=== PATIENT | female | born 1970 | race Caucasian/White ===

== ENCOUNTER 2016-12-10 13:52 | Inpatient (IN) | payer OTHER ==
--- NOTE | 2016-12-10 13:55 | PDOC ---
History of Present Illness - General Stated Complaint: PAIN Time Seen by Provider: 12/10/16 13:55 History Source: Patient Exam Limitations: No Limitations - History of Present Illness Initial Comments: 46 yo F no PMH presents with few days of severe low back pain with radiation into the L thigh. She states that she was getting out of bed, turned to the left to open a door, felt a sudden severe pain. She described it like a knife going through her lower back. She was unable to walk all day due to the pain. She has intermittently had the pain since then, but then the back pain improved. She is now having pain in the L thigh and weakness in the foot. She notes that she had an EMG a few days ago with Dr. Saunders which showed an L5-S1 radiculopathy. MRI showed damage to one of her discs. She is unable to stand on her toes due to weakness. She discussed with Dr. Faust, who referred her to ED for admission. She has been taking muscle relaxers, NSAIDs, tramadol without relief. She has finished a course of steroids. Past History - Past Medical History Allergies/Adverse Reactions: Allergies Allergy/AdvReac Type Severity Reaction Status Date / Time No Known Allergies Allergy Verified 12/10/16 14:01 Home Medications: Ambulatory Orders Acetaminophen [Tylenol] 650 mg PO Q4H PRN 12/10/16 Cyclobenzaprine HCl [Flexeril 10 mg] 10 mg PO BID 12/10/16 Gabapentin [Neurontin -] 100 mg PO Q8H 12/10/16 Ibuprofen [Motrin -] 600 mg PO TID 12/10/16 Ranitidine HCl [Zantac] 150 mg PO BID 12/10/16 Tramadol HCl [Ultram] 50 mg PO Q4H PRN 12/10/16 - Immunization History Immunization Up to Date: Yes - Psycho/Social/Smoking Cessation Hx Suicidal Ideation: No Smoking History: Never smoked Substance Use Type: None Review of Systems - Review of Systems Able to Perform ROS?: Yes Comments:: GENERAL/CONSTITUTIONAL: No fever or chills. HEAD, EYES, EARS, NOSE AND THROAT: No change in vision. No ear pain or discharge. No sore throat. CARDIOVASCULAR: No chest pain or shortness of breath. RESPIRATORY: No cough, wheezing, or hemoptysis. GASTROINTESTINAL: No nausea, vomiting, diarrhea or constipation. GENITOURINARY: No dysuria, frequency, or change in urination. MUSCULOSKELETAL: No joint or muscle swelling or pain. No neck or back pain. SKIN: No rash NEUROLOGIC: No headache, vertigo, loss of consciousness. +L foot drop ENDOCRINE: No increased thirst. No abnormal weight change. HEMATOLOGIC/LYMPHATIC: No anemia, easy bleeding, or history of blood clots. ALLERGIC/IMMUNOLOGIC: No hives or skin allergy. *Physical Exam - Physical Exam Comments: GENERAL: Awake, alert, and fully oriented, in no acute distress HEAD: No signs of trauma EYES: PERRLA, EOMI, sclera anicteric, conjunctiva clear ENT: Auricles normal inspection, hearing grossly normal, nares patent, oropharynx clear without exudates. Moist mucosa NECK: Normal ROM, supple, no lymphadenopathy, JVD, or masses LUNGS: Breath sounds equal, clear to auscultation bilaterally. No wheezes, and no crackles HEART: Regular rate and rhythm, normal S1 and S2, no murmurs, rubs or gallops ABDOMEN: Soft, nontender, normoactive bowel sounds. No guarding, no rebound. No masses EXTREMITIES: Normal range of motion, no edema. No clubbing or cyanosis. No cords, erythema, or tenderness NEUROLOGICAL: Cranial nerves II through XII grossly intact. Normal speech. Able to ambulate, but unable to stand on her toes on the L side. Sensation intact. SKIN: Warm, Dry, normal turgor, no rashes or lesions noted. SPINE: No midline tenderness. ED Treatment Course - LABORATORY CBC & Chemistry Diagram: 12/10/16 14:20 12/10/16 14:20 Medical Decision Making - Medical Decision Making 12/10/16 14:[address] Wright. Dr. Faust at bedside to evaluate. Patient declines pain meds at present. *DC/Admit/Observation/Transfer Diagnosis at time of Disposition: Radiculopathy, lumbar region - Discharge Dispostion Condition at time of disposition: Stable Admit: Yes
[2016-12-10 14:07] VITALS: BMI 25.0
[2016-12-10 14:23] LABS: BASOPHIL 0.8 % (0-2.0); EOSINOPHIL 1.5 % (0-4.5); MCH 28.1 pg (25.7-33.7); MCHC 33.3 g/dl (32.0-36.0); MEAN CELL VOLUME 84.3 fl (80-96); MEAN PLT VOLUME 9.2 fl (7.5-11.1); NEUTROPHILS 58.7 % (42.8-82.8); PLATELET COUNT 157 K/MM3 (134-434); RDW 17.7 % (11.6-15.6); WHITE BLOOD COUNT 8.8 K/mm3 (4.0-10.0)
[2016-12-10 14:42] LABS: ALBUMIN 3.5 g/dl (3.4-5.0); ALK PHOS 53 U/L (45-117); ANION GAP 10 (8-16); BILIRUBIN,TOTAL 0.4 mg/dL (0.2-1.0); CALCIUM 8.6 mg/dL (8.5-10.1); CO2 26 mmol/L (21-32); CREATININE 0.9 mg/dL (0.55-1.02); GLUCOSE,RANDOM 113 mg/dL (74-106); SGOT/AST 14 U/L (15-37); SGPT/ALT 24 U/L (12-78); TOT PROT 7.1 g/dl (6.4-8.2)
--- NOTE | 2016-12-10 14:49 | PN ---
Progress Note (short form) - Note Progress Note: NEUROSURGERY CONSULT DICTATED Pt examined History obtained Chart reviewed MRI from reviewed Some back pain for a few weeks Turned to L to get up this Sunday with increased L buttock pain to L posterior thigh, calf, ankle, and foot L foot numbness and able to stand up toes or forcefully lift L foot up; Did not have L foot weakness when she saw Dr Saunders on Sunday; EMG showed L L5-S1 radiculopathy reportedly at that time Unable to ambulate without severe pain Had taken motrin, tylenol, Neurontin, Ultram, Flexeril without significant lasting relief Had been on medrol this week and finished on Sunday/Sunday No B/B dysfunction PE: AF, VSS HEENT- NC/At; Neck- supple;Cor- RR; Lungs- CTA B; Abd- benign, + BS; Ext- No sign of DVT CN- intact II-XII; Motor- L EHL 3, L TA 3-4-, L inv 4-; L PF/toe flexors 4-; Sensation- decreased L S1 > L5 LT/PP/vibration; DTR- decreased B ankle reflexes ; + SLR on L at 45 degrees Labs pending CXR/EKG pending LS spine MRI 6-15: Small L4-5 central disc protrusion; L L5-S1 paracentral and downwardly extruded disc with moderate L S1 root compression and posterior displacement Acute progressive L L5 and S1 radiculopathy with moderate L foot drop Prior MRI findings would cause mostly L S1 and not L5 radiculopathy Repeat MRI to r/o L L4-5 paracentral or L L5-S1 foramenal HNP with L L5 root compression in addition to L S1 root compression Hematology input as pt had been on Motrin this past week OR for L L5-S1 hemilaminectomies and mocrodiscectomy (and possibly L L4-5 microdiscectomy pending new MRI findings) Pros and cons discussed Risks (bleeding, infection, dural tear, CSF leak, nerve injury, recurrent HNP, instability, general anesthesia, increased thromboembolic risks) and potential benefits discussed; bleeding risks slightly higher because of recent NSAIDS use
[2016-12-10 14:59] LABS: INR 1.04 (0.82-1.09); PROTHROMBIN TIME (PATIENT) 11.4 SEC (9.98-11.88)
--- NOTE | 2016-12-10 16:31 | HP ---
Admitting History and Physical - Admission Chief Complaint: pain in the left lower extremity and foot History of Present Illness: 46 yo female s/p pain in the left lower extremity which started suddenly 7 days ago , when the patient got up from bed and turned/ rotated her upper body to the left. The intensity of the pain immobilized the patient to bed. EMG performed on 12/07/16 showed radiculitis of the L5 and S1 nerves. MRI performed today showed a large extended L5- S1 disc herniation, impingement and posterior displacement of the left S1 nerve root; small central right paramedian L4- L5 disc herniation. The patient took various medications for her pain including: Tramadol, Flexeril , Medrol Pack. She completed the Medrol pAck yesterday. Her last dose of Motrin was today at 10 am. 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: Yes: Peripheral Neuropathy (L5, S1) Gastrointestinal: Yes: Constipation ...: No Musculoskeletal: Yes: Chronic low back pain (off an don) - Past Surgical History Additional Past Surgical History: right clavicle fracture - Smoking History Smoking history: Never smoked Have you smoked in the past 12 months: No - Alcohol/Substance Use Hx Alcohol Use: No - Social History Usual Living Arrangement: Yes: With Spouse ADL: Independent History of Recent Travel: No Home Medications - Allergies Allergies/Adverse Reactions: Allergies Allergy/AdvReac Type Severity Reaction Status Date / Time No Known Allergies Allergy Verified 12/10/16 14:01 - Home Medications Home Medications: Ambulatory Orders Acetaminophen [Tylenol] 650 mg PO Q4H PRN 12/10/16 Cyclobenzaprine HCl [Flexeril 10 mg] 10 mg PO BID 12/10/16 Gabapentin [Neurontin -] 100 mg PO Q8H 12/10/16 Ibuprofen [Motrin -] 600 mg PO TID 12/10/16 Ranitidine HCl [Zantac] 150 mg PO BID 12/10/16 Tramadol HCl [Ultram] 50 mg PO Q4H PRN 12/10/16 Review of Systems - Review of Systems Constitutional: reports: No Symptoms Eyes: reports: No Symptoms HENT: reports: No Symptoms Neck: reports: No Symptoms Cardiovascular: reports: No Symptoms Respiratory: reports: No Symptoms Gastrointestinal: reports: Constipation Genitourinary: reports: No Symptoms Breasts: reports: No Symptoms Reported Musculoskeletal: reports: Muscle Cramps (right paraspinal area), Other Integumentary: reports: No Symptoms Neurological: reports: Weakness, Other (weakness of the left foot and left lower extremity, paresthesias, pain the left lower extremiry starting in the buttock and radiating to the left heel) Endocrine: reports: No Symptoms Hematology/Lymphatic: reports: No Symptoms Psychiatric: reports: No Symptoms Physical Examination Vital Signs: Vital Signs Temperature 98.4 F 12/10/16 14:27 Pulse Rate 100 H 12/10/16 15:18 Respiratory Rate 16 12/10/16 15:18 Blood Pressure 116/84 12/10/16 15:18 O2 Sat by Pulse Oximetry (%) 99 12/10/16 15:46 Constitutional: Yes: Well Nourished, No Distress Eyes: Yes: Conjunctiva Clear, EOM Intact HENT: Yes: Atraumatic, Normocephalic Neck: Yes: Supple, Trachea Midline Cardiovascular: Yes: Regular Rate and Rhythm, S1, S2 Respiratory: Yes: Regular, CTA Bilaterally Gastrointestinal: Yes: Normal Bowel Sounds, Soft. No: Hepatomegaly, Splenomegaly ...Rectal Exam: Yes: Deferred Renal/: Yes: WNL Breast(s): Yes: WNL Musculoskeletal: Yes: Other (muscle spasm, left paraspinal area) Extremities: No: Calf Tenderness Edema: No Peripheral Pulses WNL: Yes Wound/Incision: Yes: Well Approximated Neurological: Yes: Alert, Oriented, Paresthesia (left foot, pain in the left lower extremity, radiating from the left buittock to the heel and toe) Psychiatric: Yes: Alert, Oriented Imaging - Results Chest X-ray: Other (ap film, no cardiomegaly, no pleural effusion, no infiltrate ) MRI: Other (large extended L5- L1 disc herniation, impingement and posterior displacement of the left S1 nerve root, small central right paramedian L4-L5 disc herniation) EKG: Other (NSR 98 b/min, jef l P and MS interval, QRS axis at 15 degrees, good R wave progresion, nonspecific ST- T changes) Assessment/Plan 1. L5- S1 disc herniation patient will have surgery in am since the patient took the last dose of Motrin today at 8:30 am the surgery will be performed tomorrow, DDAVP will be administered to prevent intraoperatory bleeding pain management with Tramadol and Tylenol NPO starting midnight d 51/2 NS at 75 cc/ her starting 9 pm 2. Pain management as above 3, DVT prophylaxis early ambulation 4 . PUD prophylaxis Protonix
--- NOTE | 2016-12-10 16:34 | CONSULT ---
Consult - text type - Consultation Consultation Note: 46 yo F no PMH presents with few days of severe low back pain with radiation into the L thigh. She states that she was getting out of bed, turned to the left to open a door, felt a sudden severe pain. She described it like a knife going through her lower back. She was unable to walk all day due to the pain. She has intermittently had the pain since then, but then the back pain improved. She is now having pain in the L thigh and weakness in the foot. She notes that she had an EMG a few days ago with Dr. Saunders which showed an L5-S1 radiculopathy. MRI showed damage to one of her discs. She is unable to stand on her toes due to weakness. She discussed with Dr. Faust, who referred her to ED for admission. She has been taking flexeril, NSAIDs, tramadol, Motrin 600mg without relief. She has finished a course of medrol dose pack. PMH clavicle fx No h/o bleeding diathesis, or thromboses Family h/o No h/o bleeding diathesis/thrombophilia PSH Allergies/Adverse Reactions: Allergies Allergy/AdvReac Type Severity Reaction Status Date / Time No Known Allergies Allergy Verified 12/10/16 14:01 Home Medications: Ambulatory Orders Acetaminophen [Tylenol] 650 mg PO Q4H PRN 12/10/16 Cyclobenzaprine HCl [Flexeril 10 mg] 10 mg PO BID 12/10/16 Gabapentin [Neurontin -] 100 mg PO Q8H 12/10/16 Ibuprofen [Motrin -] 600 mg PO BID 12/10/16 Ranitidine HCl [Zantac] 150 mg PO BID 12/10/16 Tramadol HCl [Ultram] 50 mg PO Q4H PRN 12/10/16 Active Medications Generic Name Dose Route Start Last Admin Trade Name Freq PRN Reason Stop Dose Admin Acetaminophen 500 mg 12/10/16 17:10 Tylenol - PO Q6H PRN FEVER OR PAIN Potassium Chloride/Dextrose/Sod Cl 1,000 mls @ 75 mls/hr 12/10/16 21:00 D5-1/2ns+20 Meq Kcl - IV ASDIR ADILIA Tramadol HCl 50 mg 12/10/16 17:10 Ultram - PO Q4H PRN PAIN Last Vital Signs Temp Pulse Resp BP Pulse Ox 99 F 93 H 20 124/61 99 12/10/16 16:30 12/10/16 16:30 12/10/16 16:30 12/10/16 16:30 12/10/16 15:46 - Physical Exam Comments: GENERAL: Awake, alert, and fully oriented, in no acute distress HEAD: No signs of trauma NECK: Normal ROM, supple, no lymphadenopathy, JVD, or masses LUNGS: Breath sounds equal, clear to auscultation bilaterally. No wheezes, and no crackles HEART: Regular rate and rhythm, normal S1 and S2, no murmurs, rubs or gallops ABDOMEN: Soft, nontender, normoactive bowel sounds. No guarding, no rebound. No masses EXTREMITIES: Normal range of motion, no edema. No clubbing or cyanosis. No cords, erythema, or tenderness NEUROLOGICAL: Cranial nerves II through XII grossly intact. Normal speech. Sensation intact. Strength 4/5 LLE Abnormal Lab Results 12/10/16 12/10/16 14:20 14:20 RDW 17.7 H D Random Glucose 113 H AST 14 L A/P 46 y/o female with L5-S1 disk prolapse with S1 radiculopathy Had been on NSAIDS---motrin 600mg bid Last dose was on 12/10 at 8:30am No h/o aspirin use. no other blood thinners. No personal/family h/o bleeding diathesis PT/PTT/platelets/fibrinogen are normal Platelet function appears to return to normal after 24 hrs. of last dose of motrin. NSAIDS are ideally discontinued 2-3 days prior to surgery. Patient reluctant to take platelets . To consider DDAVP --0.3 mcg/kg IVSS over 30mins. --21 micrograms over 30mins. prior to procedure , depending on timing of procedure timing of surgery per neurosurgical team Will follow
[2016-12-10] MEDS ORDERED: PANTOPRAZOLE SOD 40 MG SUSPENSION PACKET PO ONE (17:16)
[2016-12-10] MEDS ORDERED: POLYETHYLENE GLYCOL 3350 119 GM BTL PO PRN (17:18)
[2016-12-10] MEDS: traMADol HCL 50 MG TABLET PO PRN ×2 (17:29→23:54)
[2016-12-10] MEDS: ACETAMINOPHEN 500 MG TABLET (FP) PO PRN ×2 (17:29→23:56)
[2016-12-10] MEDS ORDERED: PANTOPRAZOLE 40 MG TABLET (FP) PO SCH (17:30)
--- NOTE | 2016-12-10 18:35 | CONS ---
DATE OF CONSULTATION: 12/10/2016 REQUESTING PHYSICIAN: Dr. Kaiser, Emergency Room CHIEF COMPLAINT: Acute L5-S1 radiculopathy with moderate foot drop. HISTORY OF PRESENT ILLNESS: The patient is a 46-year-old right-handed female with no significant past medical history, who has complained of intermittent chronic lower back pain which has worsened over the past few weeks. 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 She had gotten out of bed early this Sunday morning and turned to her left side to open the door, when she felt a pop in the left side lower back with severe pain. That subsided, but started experiencing pain going down to her left buttock, posterior thigh, calf, and the left foot. There is associated numbness on the lateral aspect of the left foot. She was started on a Medrol Dosepak in earlier part of the week, Sunday, and then subsequently saw Dr. Vladimir Saunders, neurologist, for a neurology consultation. EMG reportedly demonstrated a left L5-S1 radiculopathy. She was not reportedly found to have significant foot weakness at the time. She has no bowel or bladder dysfunction. She has been taking a significant amount of narcotic medications including Ultram, Flexeril, Neurontin, Tylenol, and Motrin. She has no right lower extremity symptoms. She has only very mild lower back pain at this time. She was not able to ambulate well because of the significant pain. Past medical history is noncontributory except for the above. Prior right clavicular fracture. Medication is Motrin, Tylenol, Neurontin, Ultram, Flexeril, and Medrol Dosepak. There is no known drug allergy. Family history is noncontributory. In terms of social history, she does not smoke, and only drinks alcohol socially. 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 She lives at home with her family. Review of systems is otherwise negative for other major cardiovascular, pulmonary, gastrointestinal, genitourinary, endocrinological, neurological, or psychological problem except for the above. PHYSICAL EXAMINATION: Vital Signs: Temperature is 98, blood pressure is 135/95, with pulse rate 111, O2 saturation is 99% on room air. HEENT: Normocephalic, atraumatic. Anicteric. Neck: Supple, with no lymphadenopathy, no carotid bruit. Coronary: Regular rhythm. Lungs: Clear bilaterally. Abdomen: Benign with active bowel sounds. Extremities: No obvious signs of DVT. Neurologic: She is awake, alert, oriented x4. Cranial nerves examination is intact, 2-12. Motor examination shows 5/5 strength with the exception of left extensor hallucis longus, which is 3/5. Left foot inversion is 4-/5, as is left tibialis anterior. Left foot plantar flexion and toe flexors are 4-/5. Sensory examination shows diminished sensation to pinprick, light touch, and vibratory sensation in left S1 greater than L5 distribution. Deep tendon reflexes are 1 to 2+ throughout except for diminished bilateral ankle reflexes. She has a positive straight-leg raise on the left side at about 45 degrees. Examination of lower back shows mild left sciatic notch tenderness and mild paraspinal muscle spasm. Laboratory examination shows white blood cell count 8.8, hemoglobin 13.2 and hematocrit 39.7, platelet count is 157,000. INR and PTT are pending. Serum sodium is 138, potassium 4.21, BUN 14, creatinine 0.9, serum glucose is 113. LFTs are normal. Serum is negative. Chest x-ray and EKG are still pending. MRI examination of the lumbar spine from 3 days earlier demonstrated L5-S1 left- sided paracentral disk herniation with left subarticular disk extrusion extending downwardly with compression of the left S1 nerve root with posterior displacement, and neural foramen was normal at that time. There is a small central disk protrusion at L4-5. There is an annular tear. IMPRESSION: 1. Acute left L5 and S1 radiculopathy. 2. MRI evidence of left L5-S1 extruded disk herniation with left S1 nerve root compression. Rule out new left L4-5 paracentral or left L5-S1 foraminal disk herniation with left L5 nerve root impingement. 3. History of right clavicular fracture, managed conservatively. RECOMMENDATIONS: The patient presents with acute left L5-S1 radiculopathy. This was apparently confirmed by the EMG done about 3 days earlier at the neurologist's office. She reportedly did not have any significant weakness at that time, but over the last few days had developed weakness of the left foot with dorsiflexion and plantar flexion, as well as toe flexors and extensors. MRI from 3 days ago demonstrated extruded left L5-S1 disk herniation with left S1 nerve root compression. This would cause predominantly left S1 radiculopathy and should not cause significant left L5 radiculopathy. Because she does have a significant disk protrusion at L4-5, a repeat MRI of the lumbar spine is recommended to evaluate the presence of a left L4-5 paracentral disk herniation or left L5-S1 foraminal disk herniation, which could cause concurrent left L5 radiculopathy. Regardless, because of the neurological deficit, patient is a candidate for urgent left L5-S1 hemilaminectomy and microdiskectomy as well as possible L4-5 level procedure. One would ideally perform the procedure but patient had taken Motrin at 0830 today. The procedure was explained to the patient and her at bedside in the emergency room today. Risks of procedure include but are not limited to bleeding, infection, dural tear with CSF leak, neurological injury, increased thromboembolic risk, general anesthesia, recurrent disk herniation, and risks of general anesthesia. The expected operative and post-operative care was described. The patient understands the indications for the procedure, procedure in detail, risks and benefits, and alternatives for treatment of her lumbar condition and wishes to proceed. No guarantee is given for a favorable outcome. Further update will be given to her upon the availability of the new MRI study. A hematology consult is also requested because of her having taken non-steroidal anti-inflammatory medication for this past week up to this morning. A compromise on surgery timing is likely needed. Patient prefers no transfusion. (including platelet) All questions were answered. The , Dr Ford, was at the bedside in ED for the consultation. CARISSA RIVERO M.D. [id number] MTDD
[2016-12-10] MEDS ORDERED: HYDROmorphone HCL CARPU-JECT 1 MG/1 ML DISP.SYRIN IVPB PRN (19:27)
[2016-12-10] MEDS ORDERED: HYDROmorphone HCL CARPU-JECT 1 MG/1 ML DISP.SYRIN ONE (19:28)
[2016-12-10] MEDS ORDERED: DEXAMETHASONE SOD PHOSPHATE 10 MG/1 ML VIAL ONE (19:28)
[2016-12-10] MEDS ORDERED: HYDROmorphone HCL CARPU-JECT 2 MG/1 ML DISP.SYRIN IVPB PRN (19:28)
[2016-12-10] MEDS ORDERED: DEXAMETHASONE SOD PHOSPHATE 4 MG/1 ML VIAL IVPUSH ONE (19:30)
[2016-12-10] MEDS: diazePAM 5 MG TABLET PO SCH (19:35)
[2016-12-10] MEDS ORDERED: ONDANSETRON 4 MG/2 ML VIAL IVPB PRN (20:29)
[2016-12-10] MEDS ORDERED: D5-1/2NS+20 MEQ KCL - 1,000 ML IV SCH (21:00)
[2016-12-10] MEDS: GABAPENTIN 300 MG CAPSULE (FP) PO SCH (21:24)
[2016-12-10] MEDS ORDERED: DOCUSATE SODIUM 100 MG CAPSULE (FP) PO SCH (22:00)
[2016-12-11] MEDS ORDERED: DEXTROSE 5%-0.45% SALINE 1,000 ML IV SCH
[2016-12-11] MEDS: diazePAM 5 MG TABLET PO SCH ×3 (06:11→21:02)
[2016-12-11] MEDS: GABAPENTIN 300 MG CAPSULE (FP) PO SCH ×3 (06:11→21:02)
[2016-12-11] MEDS ORDERED: PANTOPRAZOLE 40 MG TABLET (FP) PO SCH (07:00)
[2016-12-11 07:30] LABS: BASOPHIL 0.2 % (0-2.0); MCH 27.7 pg (25.7-33.7); MCHC 32.7 g/dl (32.0-36.0); MEAN CELL VOLUME 84.8 fl (80-96); MEAN PLT VOLUME 9.6 fl (7.5-11.1); NEUTROPHILS 87.8 % (42.8-82.8); PLATELET COUNT 191 K/MM3 (134-434); RDW 18.1 % (11.6-15.6); WHITE BLOOD COUNT 11.6 K/mm3 (4.0-10.0)
[2016-12-11 07:43] LABS: INR 1.07 (0.82-1.09); PROTHROMBIN TIME (PATIENT) 11.8 SEC (9.98-11.88)
[2016-12-11 08:12] LABS: ALBUMIN 3.3 g/dl (3.4-5.0); ALK PHOS 55 U/L (45-117); ANION GAP 8 (8-16); BILIRUBIN,TOTAL 0.4 mg/dL (0.2-1.0); CALCIUM 8.5 mg/dL (8.5-10.1); CO2 26 mmol/L (21-32); CREATININE 0.8 mg/dL (0.55-1.02); GLUCOSE,RANDOM 117 mg/dL (74-106); SGOT/AST 17 U/L (15-37); SGPT/ALT 26 U/L (12-78); TOT PROT 6.8 g/dl (6.4-8.2)
[2016-12-11] MEDS ORDERED: SODIUM CHLORIDE IVPB ONE (08:30)
[2016-12-11] MEDS ORDERED: DESMOPRESSIN ACETATE IVPB ONE (08:30)
--- NOTE | 2016-12-11 08:47 | PN ---
Progress Note (short form) - Note Progress Note: NEUROSURGERY Care d/w Dr Munoz DDAVP being infused Needed dilaudid and valium over night because of increased pain PE: AF, VSS HEENT- NC/At; Neck- supple;Cor- RR; Lungs- CTA B; Abd- benign, + BS; Ext- No sign of DVT CN- intact II-XII; Motor- L EHL 3, L TA 4, L inv 4-; L PF/toe flexors 4-; Sensation- decreased L S1 > L5 LT/PP/vibration; DTR- decreased B ankle reflexes ; + SLR on L at 45 degrees LS spine MRI 6-18: Small L4-5 central disc protrusion; L L5-S1 paracentral and downwardly extruded disc with moderate L S1 root compression and posterior displacement WBC 11.6 secondary to iv decadron Acute progressive L L5 and S1 radiculopathy with moderate L foot drop OR for L L5-S1 hemilaminectomies and mocrodiscectomy (and possibly L L4-5 microdiscectomy pending intra-op findings) Pros and cons discussed Incision marked SCD's Risks (bleeding, infection, dural tear, CSF leak, nerve injury, recurrent HNP, instability, general anesthesia, increased thromboembolic risks) and potential benefits discussed; bleeding risks slightly higher because of recent NSAIDS use All questions answered
[2016-12-11] MEDS ORDERED: MIDAZOLAM HCL 2 MG/2 ML SINGLE DOSE VIAL ONE ×2 (09:05→10:54)
[2016-12-11] MEDS ORDERED: ROCURONIUM BROMIDE 50 MG/5 ML VIAL ONE (09:06)
[2016-12-11] MEDS ORDERED: PROPOFOL 20 ML ONE (09:06)
[2016-12-11] MEDS ORDERED: DESMOPRESSIN ACETATE 4 MCG/ML AMP IVPB ONE (09:30)
[2016-12-11] MEDS ORDERED: ceFAZolin SODIUM 1 GM VIAL IVPB ONE (09:40)
[2016-12-11] MEDS ORDERED: LIDOCAINE HCL/PF 2% SDV 5ML VIAL ONE (09:47)
[2016-12-11] MEDS ORDERED: DEXAMETHASONE SOD PHOSPHATE 4 MG/1 ML VIAL ONE (09:47)
[2016-12-11] MEDS ORDERED: ONDANSETRON 4 MG/2 ML VIAL ONE (09:47)
[2016-12-11] MEDS ORDERED: ceFAZolin SODIUM 1 GM VIAL ONE (09:47)
[2016-12-11] MEDS ORDERED: THROMBIN (BOVINE) 5,000 UNIT VIAL TP ONE (10:02)
[2016-12-11] MEDS ORDERED: BACITRACIN 50,000 UNITS VIAL TP ONE (10:02)
[2016-12-11] MEDS ORDERED: BUPIVACAINE HCL/PF 0.5% (5MG/ML) 10 ML VIAL IJ ONE (10:47)
[2016-12-11] MEDS ORDERED: NEOSTIGMINE METHYLSULFATE 0.5 MG/ML - 10 ML MDV ONE (10:49)
[2016-12-11] MEDS ORDERED: GLYCOPYRROLATE 0.2 MG/1 ML VIAL ONE (10:50)
[2016-12-11] MEDS ORDERED: BACITRACIN 30 GM TUBE TOPICAL OINTMENT ONE (11:06)
--- NOTE | 2016-12-11 11:09 | OP ---
Operative Note - Note: Operative Date: 12/11/16 Pre-Operative Diagnosis: L L5-S1 extruded HNP and L L5/S1 radiculopathy Operation: Partial L L5 and S1 laminectomies, medial facetectomy, foramenotomy, microdisectomy, microdissection Findings: Large extruded HNP; multiple fragments, mass effect on L S1 root Implants: Active barrier 4x4 cm Post-Operative Diagnosis: Same as Pre-op Surgeon: Pratik Faust Sinter Press Operator: Gucci Melendrez Anesthesiologist/RADIOISOTOPE TECHNOLOGIST: Kacie Haines MD Anesthesia: General Specimens Removed: Large extruded HNP L L5-S1 Estimated Blood Loss (mls): 10
[2016-12-11] MEDS ORDERED: BACITRACIN 30 GM TUBE TOPICAL OINTMENT TP ONE ×2 (11:13)
--- NOTE | 2016-12-11 11:21 | PN ---
Progress Note, Physician Chief Complaint: came to see patient , patient in OR Pateint examined in the recovery room, had L5 and S1 laminectomy . left facetectomy, foraminectomy, extraction of large disc fragment, , loss of 10 cc blood, tolerated well procedure, received LR 800 cc, s/p general anesthesia - Current Medication List Current Medications: Active Medications Acetaminophen (Tylenol -) 500 mg PO Q6H PRN PRN Reason: FEVER OR PAIN Last Admin: 12/10/16 23:56 Dose: 500 mg Diazepam (Valium -) 5 mg PO TID [facility] Last Admin: 12/11/16 06:11 Dose: Not Given Docusate Sodium (Colace -) 100 mg PO HS [facility] Last Admin: 12/10/16 21:24 Dose: Not Given Gabapentin (Neurontin -) 300 mg PO TID [facility] Last Admin: 12/11/16 06:11 Dose: Not Given Hydromorphone HCl (Dilaudid Injection -) 1 mg IVPB Q4H PRN PRN Reason: MODERATE PAIN Last Admin: 12/10/16 19:32 Dose: 1 mg Hydromorphone HCl (Dilaudid Injection -) 2 mg IVPB Q4H PRN PRN Reason: SEVERE PAIN Ondansetron HCl (Zofran Injection) 4 mg IVPB Q6H PRN PRN Reason: NAUSEA Pantoprazole Sodium (Protonix -) 40 mg PO AM [facility] Last Admin: 12/11/16 06:12 Dose: Not Given Polyethylene Glycol (Miralax (For Daily Use) -) 17 gm PO DAILY PRN PRN Reason: CONSTIPATION Tramadol HCl (Ultram -) 50 mg PO Q4H PRN PRN Reason: PAIN Last Admin: 12/10/16 23:54 Dose: 50 mg - Objective Vital Signs: Vital Signs Temperature 99 F 12/11/16 09:00 Pulse Rate 90 12/11/16 09:00 Respiratory Rate 18 12/11/16 09:00 Blood Pressure 120/73 12/11/16 09:00 O2 Sat by Pulse Oximetry (%) 96 12/11/16 09:00 Constitutional: Yes: No Distress, Calm, Other (alert) Eyes: Yes: Conjunctiva Clear, EOM Intact HENT: Yes: Atraumatic, Normocephalic Neck: Yes: Supple, Trachea Midline Cardiovascular: Yes: Regular Rate and Rhythm, S1, S2 Respiratory: Yes: Regular, CTA Bilaterally, Cough Gastrointestinal: Yes: Normal Bowel Sounds, Soft. No: Hepatomegaly, Splenomegaly ...Rectal Exam: Yes: Deferred Musculoskeletal: Yes: Other (incision in the lumbar area, covered with ash, steri strips present) Edema: No Peripheral Pulses WNL: Yes Integumentary: Yes: WNL Wound/Incision: Yes: Steri Strips (did not examoine the wound directly , since it is covered with steri strips) Neurological: Yes: Alert, Oriented Psychiatric: Yes: Alert, Oriented Labs: CBC, BMP 12/11/16 06:00 12/11/16 06:00 INR, PTT INR 1.07 (0.82-1.09) 12/11/16 06:00 Fibrinogen 276.0 mg/dL (238-498) 12/10/16 14:15 - ....Imaging EKG: Other (EKG NSR, at 85 b/min, normal p and pr ,good R wave progression, nonspecific ST T changes) Assessment/Plan 1. L5- S1 disc herniation, s/p laminectomy and disc herniation patient had and tolerated well procedure pain management with Tramadol and Tylenol 2. Pain management as above 3, DVT prophylaxis early ambulation 4 . PUD prophylaxis Protonix
[2016-12-11] MEDS ORDERED: ONDANSETRON 4 MG/2 ML VIAL IVPB PRN (11:37)
[2016-12-11] MEDS ORDERED: ACETAMINOPHEN 500 MG TABLET (FP) PO PRN (11:37)
[2016-12-11] MEDS ORDERED: POLYETHYLENE GLYCOL 3350 119 GM BTL PO PRN (11:37)
--- NOTE | 2016-12-11 11:39 | PN ---
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
[2016-12-11] MEDS ORDERED: ONDANSETRON 4 MG/2 ML VIAL IVPUSH PRN (11:40)
[2016-12-11] MEDS ORDERED: oxyCODONE HCL 5 MG TABLET PO PRN (11:41)
--- NOTE | 2016-12-11 11:49 | SURG ---
Surgery Geotechnical Field Technician Note Geotechnical Field Technician: Gucci Melendrez PA-C Date of Service: 12/11/16 Diagnosis: L L5-S1 extruded HNP and L L5/S1 radiculopathy Procedure: Partial L L5 and S1 laminectomies, medial facetectomy, foramenotomy, microdisectomy, microdissection Findings: Large extruded HNP; multiple fragments, mass effect on L S1 root I was present for the entirety of the operative procedure. For further detail, please refer to operative report. Visit type - Case Type Case Type: ED Admission - Emergency Emergency Visit: Yes ED Registration Date: 12/10/16 Care time: The patient presented to the Emergency Department on the above date and was hospitalized for further evaluation of their emergent condition. - New patient This patient is new to me today: Yes Date on this admission: 12/11/16
--- NOTE | 2016-12-11 13:20 | EKG ---
Test Reason : Blood Pressure : / mmHG Vent. Rate : 085 BPM Atrial Rate : 085 BPM P-R Int : 132 ms QRS Dur : 078 ms QT Int : 376 ms P-R-T Axes : 071 044 043 degrees QTc Int : 447 ms NORMAL SINUS RHYTHM NORMAL ECG WHEN COMPARED WITH ECG OF 10-DEC-2016 15:26, T WAVE VARIATION Confirmed by TOMASZ COLLIER MD ([id number]) on 12/11/2016 1:20:09 PM Referred By: Confirmed By:TOMASZ COLLIER MD
--- NOTE | 2016-12-11 14:21 | EKG ---
Test Reason : Blood Pressure : / mmHG Vent. Rate : 060 BPM Atrial Rate : 060 BPM P-R Int : 166 ms QRS Dur : 090 ms QT Int : 442 ms P-R-T Axes : 042 013 004 degrees QTc Int : 442 ms NORMAL SINUS RHYTHM NORMAL ECG NO PREVIOUS ECGS AVAILABLE Confirmed by TOMASZ COLLIER MD ([id number]) on 12/11/2016 2:21:00 PM Referred By: Confirmed By:TOMASZ COLLIER MD
[2016-12-11] MEDS: CEFAZOLIN (PRE-DOCKED) 50 ML IVPB SCH (17:43)
--- NOTE | 2016-12-11 17:52 | PN ---
Progress Note (short form) - Note Progress Note: Last Vital Signs Temp Pulse Resp BP Pulse Ox 98.8 F 87 16 122/68 97 12/11/16 13:50 12/11/16 13:50 12/11/16 13:50 12/11/16 13:50 12/11/16 13:50 HEENT: THELMA, EOM Intact Oropharynx: No thrush, No mucositis Neck: Supple Nodes: Without adenopathy Breasts: Without masses Cor: RSR, No murmurs, No gallops Lungs: Clear to P&A Abd: Soft, Normal bowel sounds, No organomegaly Ext:No significant edema Skin: No rashes, Integument intact Abnormal Lab Results 12/11/16 12/11/16 06:00 06:00 WBC 11.6 H D RDW 18.1 H Neutrophils % 87.8 H D Monocytes % 3.1 L Random Glucose 117 H Albumin 3.3 L Active Medications Generic Name Dose Route Start Last Admin Trade Name Freq PRN Reason Stop Dose Admin Acetaminophen 500 mg 12/11/16 11:37 12/11/16 13:59 Tylenol - PO 500 mg Q6H PRN Administration FEVER OR PAIN Diazepam 5 mg 12/11/16 14:00 12/11/16 13:59 Valium - PO Not Given TID [facility] Docusate Sodium 100 mg 12/11/16 22:00 Colace - PO HS [facility] Fentanyl 50 mcg 12/11/16 11:40 Sublimaze Injection - IVPUSH 12/14/16 11:41 [id number] PRN PAIN Gabapentin 300 mg 12/11/16 14:00 12/11/16 13:59 Neurontin - PO 300 mg TID [facility] Administration Heparin Sodium (Porcine) 5,000 unit 12/11/16 22:00 Heparin - SQ BID [facility] Cefazolin Sodium 50 mls @ 100 mls/hr 12/11/16 18:00 12/11/16 17:43 Ancef 1gm Ivpb (Pre-Docked) IVPB 12/12/16 17:59 100 mls/hr Q8H-IV [facility] Administration Ondansetron HCl 4 mg 12/11/16 11:37 Zofran Injection IVPB Q6H PRN NAUSEA Oxycodone HCl 5 mg 12/11/16 11:41 Roxicodone - PO Q4H PRN PAIN Pantoprazole Sodium 40 mg 12/12/16 07:00 Protonix - PO AM [facility] Polyethylene Glycol 17 gm 12/11/16 11:37 Miralax (For Daily Use) - PO DAILY PRN CONSTIPATION Tramadol HCl 50 mg 12/11/16 11:37 Ultram - PO Q4H PRN PAIN A/P 46 y/o patient with L5-S1 radiculopathy s/p minimally invasive diskectomy recent motrin use s/p DDAVP prior to surgery started DVT prophy per neurosurgery monitor CBC/CMP
[2016-12-11] MEDS: traMADol HCL 50 MG TABLET PO PRN (21:00)
[2016-12-11] MEDS: HEPARIN NA (PORCINE) 5,000 UNITS/ML 1ML VIAL SQ SCH (21:02)
[2016-12-11] MEDS ORDERED: DOCUSATE SODIUM 100 MG CAPSULE (FP) PO SCH (22:00)
[2016-12-12] MEDS: CEFAZOLIN (PRE-DOCKED) 50 ML IVPB SCH ×2 (02:07→09:40)
[2016-12-12] MEDS: GABAPENTIN 300 MG CAPSULE (FP) PO SCH ×2 (06:09→13:38)
[2016-12-12] MEDS: traMADol HCL 50 MG TABLET PO PRN ×2 (06:09→10:21)
[2016-12-12] MEDS: diazePAM 5 MG TABLET PO SCH ×2 (06:10→13:38)
[2016-12-12 06:59] LABS: BASOPHIL 0.4 % (0-2.0); MCH 27.8 pg (25.7-33.7); MCHC 32.7 g/dl (32.0-36.0); MEAN PLT VOLUME 9.6 fl (7.5-11.1); PLATELET COUNT 146 K/MM3 (134-434); WHITE BLOOD COUNT 12.8 K/mm3 (4.0-10.0)
[2016-12-12] MEDS ORDERED: PANTOPRAZOLE 40 MG TABLET (FP) PO SCH (07:00)
[2016-12-12 07:24] LABS: ALBUMIN 2.9 g/dl (3.4-5.0); ANION GAP 8 (8-16); CO2 26 mmol/L (21-32); GLUCOSE,RANDOM 98 mg/dL (74-106)
[2016-12-12 07:27] LABS: ALK PHOS 42 U/L (45-117); BILIRUBIN,TOTAL 0.5 mg/dL (0.2-1.0); CREATININE 0.8 mg/dL (0.55-1.02); SGOT/AST 10 U/L (15-37); SGPT/ALT 21 U/L (12-78); TOT PROT 5.6 g/dl (6.4-8.2)
--- NOTE | 2016-12-12 07:57 | PN ---
Progress Note (short form) - Note Progress Note: NEUROSURGERY POD #1 Mild incisional pain No sciatica Foot strength and sensation "normal" Ambulating independently PE: AF, VSS; VA 80-90's HEENT- NC/At; Neck- supple;Cor- RR; Lungs- CTA B; Abd- benign, + BS; Ext- No sign of DVT; negative Arrington's CN- intact II-XII; Motor- L EHL 4+, L TA 5, L PF/toe flexors 5; Sensation- grossly intact; DTR- decreased B ankle reflexes Minimal need for pain meds Findings d/w patient again All questions answered instructions given
[2016-12-12] MEDS: HEPARIN NA (PORCINE) 5,000 UNITS/ML 1ML VIAL SQ SCH (09:43)
[2016-12-12 10:04] VITALS: BP 132/71; PULSE 84; TEMP 97.6
--- NOTE | 2016-12-12 11:16 | OP ---
DATE OF OPERATION: 12/11/2016 PREOPERATIVE DIAGNOSES: 1. Acute central and left-sided L5-S1 extruded disk herniation with acute left L5 and S1 radiculopathy including foot drop. 2. Small central disk protrusion at L4-L5. POSTOPERATIVE DIAGNOSES: 1. Acute central and left-sided L5-S1 extruded disk herniation with acute left L5 and S1 radiculopathy including foot drop. 2. Small central disk protrusion at L4-L5. ATTENDING SURGEON: Pratik Faust MD PALM AND BACK FORGER: [place] ANESTHESIA: General endotracheal. ANESTHESIOLOGIST: Kacie Haines MD ESTIMATED BLOOD LOSS: 10 mL. PROCEDURES: 1. Partial left L5 and S1 laminectomies including medial facetectomy and foraminotomy for decompression of the thecal sac as well as the left L5 and S1 nerve roots ([id number], [id number]). 2. Microsurgical dissection with operating microscope and microsurgical technique ([id number]). FINDINGS: Extruded disk herniation by L5-S1 with marked left S1 nerve root impingement and disk fragment in the lateral recess with possible left L5 nerve root impingement. 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 About 1 week earlier she developed acute sciatica after twisting and turning. The pain radiated down to her left lower extremity and was associated with numbness. She had seen a neurologist approximately 4 days prior to admission at which time she had no reported findings of weakness. EMG at that time demonstrated left L5-S1 radiculopathy. There was absent ankle reflex. Over the weekend after the completion of Medrol Dosepak, her weakness worsened. She could not stand on her toes or her heels. She also had numbness on the latera aspect of the left foot,. Her pain became intractable once again despite multiple medications including Ultram, Motrin, Tylenol, Flexeril, and Neurontin. She has been admitted through the emergency room and repeat MRI was obtained to rule out worsening L4-L5 disk herniation. She is now consented for left L5-S1 decompression and concurrent microdiskectomy. The risks of procedure include, but are not limited to, bleeding, infection, dural tear with CSF leak, neurological injury including thromboembolic risks, recurrent disk herniation, and other risks of general anesthesia. The patient understands the indications for the procedure, procedure in detail, risks and benefits, and alternatives for treatment of her lumbar condition, and wishes to proceed. No guarantees given for favorable outcome. The patient has approximately (3/5 strength) moderate left foot drop of the left foot prior to surgery. PROCEDURE IN DETAIL: Planned surgery was held from yesterday evening because it was Hemtology's opinion that the patient be off Motrin for at least 24 hours. Patient had taken 800 mg Motrin at 0830 yesterdau. DDAVP was ordered by Hematology and given about 1 1/2 hour prior to incision. After the patient was taken to the operating room, she was placed in supine position. After general anesthesia was induced and appropriate lines were placed, she was turned in a prone position on a Pradip frame. All pressure points were checked and padded. O2 saturation to bilateral lower extremities was 100%. Lumbar region was cleaned with alcohol and prepped with Betadine. Localization x-ray was obtained with spinal needle in place. Approximately 1-1/4-inches incision was opened at the midline. Subperiosteal dissection was carried out on the left side only with a periosteal elevator and monopolar electrocautery to expose both lamina at L5-S1 on the left as well as the facet joint medially. A self-retaining retractor was inserted. Another localization x-ray was obtained with a clamp on the bottom left L5 lamina. At this point, partial left L5-S1 laminectomy was carried out with high-speed pneumatic drill, angled curette, and Kerrison rongeur. The more extended exposure and decompression was needed because of the size of the disc herniation and the caudal migration from the disc space. A small amount of medial facetectomy was carried out to significant reduce the need for retraction. The underlying ligamentum flavum was dissected free with angled curette and resected with Kerrison rongeur. The left S1 nerve root was displaced posteriorly rather markedly. Operating microscope used moved in at this point for both illumination and magnification. Microsurgical techniques were utilized. The disk material was mobilized with a combination of nerve hook , dental tool and removed with pituitary rongeur. No retraction was applied to the left S1 nerve root or the L5 nerve root because of the significant pressure the S1 nerve root is already under. Exploration of all quadrants of the surgical exposure over the shoulder and then the axilla at the S1 nerve root was carried out. Multiple large fragments were removed both anterior to the S1 nerve root, anterior to the thecal sac as well as in the lateral recess. Disk material was removed. This was done with meticulous dissection. No significant nerve root retraction was carried out at any point in time. Left L5-S1 foramenotomy was carried out with angle curette and Kerrison rongeur to decompress the left L5 nerve root because of the patient's preoperative foot drop. After the decompression was completed, epidural hemostasis was obtained with bipolar electrocautery. The wound was irrigated intermittently with antibiotic-containing irrigation. Valsalva maneuver was performed, and there was no CSF leak. Dura was pulsating nicely with CSF pulsation. Foraminotomy was carried out on the left side at L5-S1 with an L5-S1 angled curette and Kerrison rongeur. Both left L5 and S1 nerve roots were free. After the decompression was completed, the wound was irrigated with antibiotic-containing irrigation, and 10 mL of 0.25 % Marcaine was injected in the paraspinal muscles on the left side only. Paraspinal hemostasis was obtained with bipolar electrocautery. A piece of 4 x 4 cm active barrier membrane was layered in the epidural space as an adhesive barrier. Dorsal lumbar fascia was closed with 0 Vicryl suture, and subcutaneous fascia was closed with 3-0 Vicryl sutures. The skin was closed with 4-0 Vicryl running subcuticular suture. Steri-Strips and sterile occlusive dressing was applied. The patient tolerated the procedure well and was returned back to the supine position and moving bilateral lower extremities well. All needle and lap counts were correct. The OR time-out procedure was followed. The patient received 1 dose of 1 g of Ancef prior to the incision. She showed almost immediate improvement of left foot strength in the PACU. Milla [id number] MTDD
--- NOTE | 2016-12-12 13:55 | PATH ---
Surgical Pathology Report Patient Name: JOSE A ROBERT Med. Rec. #: [id number] /Age/Gender: 1970 (Age: 46) / F Account: [id number] Location: [facility] MED/SURG Taken: 12/11/2016 Received: 12/11/2016 Reported: 12/12/2016 Physicians: Milla Croft M.D. Specimen(s) Received DISC L5-S1 Clinical History Herniated disc, left L5-S1 Final Diagnosis INTERVERTEBRAL DISC, L5-S1, MICRODISCECTOMY: CARTILAGE WITH DEGENERATIVE CHANGES. Electronically Signed Fabrizio Sidhu M.D. Gross Description Received in formalin labeled "disc L5-S1" is a 3.3 x 3.0 x 0.3 cm aggregate of singh fragments of fibrocartilaginous tissue. A tax representative portion is submitted in one cassette. /12/11/2016 saudi12/11/2016
--- NOTE | 2016-12-12 14:04 | PN ---
Progress Note, Physician Chief Complaint: Pateint examined feels good - Current Medication List Current Medications: Active Medications Acetaminophen (Tylenol -) 500 mg PO Q6H PRN PRN Reason: FEVER OR PAIN Last Admin: 12/11/16 13:59 Dose: 500 mg Diazepam (Valium -) 5 mg PO TID [facility] Last Admin: 12/12/16 13:38 Dose: Not Given Docusate Sodium (Colace -) 100 mg PO HS [facility] Last Admin: 12/11/16 21:01 Dose: 100 mg Fentanyl (Sublimaze Injection -) 50 mcg IVPUSH [id number] PRN PRN Reason: PAIN Stop: 12/14/16 11:41 Gabapentin (Neurontin -) 300 mg PO TID [facility] Last Admin: 12/12/16 13:38 Dose: 300 mg Heparin Sodium (Porcine) (Heparin -) 5,000 unit SQ BID [facility] Last Admin: 12/12/16 09:43 Dose: 5,000 unit Cefazolin Sodium (Ancef 1gm Ivpb (Pre-Docked)) 50 mls @ 100 mls/hr IVPB Q8H-IV [facility] Stop: 12/12/16 17:59 Last Admin: 12/12/16 09:40 Dose: 100 mls/hr Ondansetron HCl (Zofran Injection) 4 mg IVPB Q6H PRN PRN Reason: NAUSEA Oxycodone HCl (Roxicodone -) 5 mg PO Q4H PRN PRN Reason: PAIN Pantoprazole Sodium (Protonix -) 40 mg PO AM [facility] Last Admin: 12/12/16 06:09 Dose: 40 mg Polyethylene Glycol (Miralax (For Daily Use) -) 17 gm PO DAILY PRN PRN Reason: CONSTIPATION Tramadol HCl (Ultram -) 50 mg PO Q4H PRN PRN Reason: PAIN Last Admin: 12/12/16 10:21 Dose: 50 mg - Objective Vital Signs: Vital Signs Temperature 97.6 F 12/12/16 09:00 Pulse Rate 84 12/12/16 09:00 Respiratory Rate 18 12/12/16 09:00 Blood Pressure 132/71 12/12/16 09:00 O2 Sat by Pulse Oximetry (%) 99 12/12/16 09:00 Constitutional: Yes: No Distress, Calm Eyes: Yes: Conjunctiva Clear, EOM Intact HENT: Yes: Atraumatic, Normocephalic Neck: Yes: Supple, Trachea Midline Cardiovascular: Yes: Regular Rate and Rhythm Respiratory: Yes: Regular, CTA Bilaterally Gastrointestinal: Yes: Normal Bowel Sounds, Soft, Abdomen, Obese. No: Hepatomegaly, Splenomegaly ...Rectal Exam: Yes: Deferred Genitourinary: Yes: WNL Breast(s): Yes: WNL Musculoskeletal: No: Back Pain Extremities: Yes: WNL. No: Calf Tenderness Edema: No Peripheral Pulses WNL: Yes Integumentary: Yes: WNL Wound/Incision: Yes: Well Approximated Labs: CBC, BMP 12/12/16 06:15 12/12/16 06:15 INR, PTT INR 1.07 (0.82-1.09) 12/11/16 06:00 Fibrinogen 276.0 mg/dL (238-498) 12/10/16 14:15 Problem List - Problems (1) Radiculopathy, lumbar region Code(s): M54.16 - RADICULOPATHY, LUMBAR REGION (2) Lumbar disc herniation Assessment/Plan: continue Tramadol at home Code(s): M51.26 - OTHER INTERVERTEBRAL DISC DISPLACEMENT, LUMBAR REGION (3) Constipation Assessment/Plan: Colace daily Code(s): K59.00 - CONSTIPATION, UNSPECIFIED
--- NOTE | 2016-12-12 14:05 | DS ---
Physical Examination Vital Signs: Vital Signs Temperature 97.6 F 12/12/16 09:00 Pulse Rate 84 12/12/16 09:00 Respiratory Rate 18 12/12/16 09:00 Blood Pressure 132/71 12/12/16 09:00 O2 Sat by Pulse Oximetry (%) 99 12/12/16 09:00 Constitutional: Yes: No Distress, Calm Eyes: Yes: Conjunctiva Clear, EOM Intact HENT: Yes: Atraumatic, Normocephalic Neck: Yes: Supple, Trachea Midline Cardiovascular: Yes: Regular Rate and Rhythm, S1, S2 Respiratory: Yes: Regular, CTA Bilaterally Gastrointestinal: Yes: Normal Bowel Sounds, Soft, Abdomen, Obese. 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 The patient had surgical intervention with L5 and s1, discectomy, facetectomy, and extraction of the disc fragment. The post op recovery was quick with no complications and significsnt improvement of the patient's pain . The patient is cllinically safe for discharge home Condition: Stable - Instructions Diet, Activity, Other Instructions: Post-op Instructions Diet: Regular Activity:May shower but keep incision line dry. Dressing change afterwards. Light activity only. Restrictions: Do not lift anything over 10lbs. No sudden twisting and bending. Additional Instructions: Keep incision line clean and dry. Change dressing daily. Report any chills, fever (100 or greater), any wound drainage, or any neurological changes to Dr. Faust. Do not drive for two weeks. Call if chest pain , dyspnea, leg swelling. Initial postop visit: Call Dr. Faust's office to be seen in 2 weeks for initial postop Disposition: HOME - Home Medications Comprehensive Discharge Medication List: Ambulatory Orders Acetaminophen [Tylenol] 650 mg PO Q4H PRN 12/10/16 Cyclobenzaprine HCl [Flexeril 10 mg] 10 mg PO BID 12/10/16 Gabapentin [Neurontin -] 100 mg PO Q8H 12/10/16 Ibuprofen [Motrin -] 600 mg PO TID 12/10/16 Ranitidine HCl [Zantac] 150 mg PO BID 12/10/16 Tramadol HCl [Ultram] 50 mg PO Q4H PRN 12/10/16
== END 2016-12-12 15:07 | disposition home or self-care (01) | DRG 520 ==
LOC: JER 13:52 → JERBED 14:27 → J8W 15:22
PROVIDERS: ADMIT Internal Medicine; ATTEND Internal Medicine
PROC: 01NB0ZZ Release Lumbar Nerve, Open Approach (ICD-10-PCS; 2016-12-11)
PROC: 0SB40ZZ Excision of Lumbosacral Disc, Open Approach (ICD-10-PCS; principal; 2016-12-11 08:30)
DX: M51.16 Intervertebral disc disorders with radiculopathy, lumbar region (principal); G62.89 Other specified polyneuropathies; M21.372 Foot drop, left foot; K59.00 Constipation, unspecified; R20.9 Unspecified disturbances of skin sensation
CPT/HCPCS: 36415; 71010-TC; 72100-TC; 72148-TC; 80053; 84703; 85025; 85384; 85610; 85730; 86850; 86900; 86901; 88304-TC; 93005; 93010; 94760; 97116-GP; 99285-25; J1644; J2597